=== PATIENT | male | born 2005 | race Caucasian/White ===

== ENCOUNTER 2025-01-07 17:59 | Emergency (ER) | payer MEDICAID ==
[~2025-01-07] VITALS: Ht 162.6 cm; Wt 66.0 kg
[2025-01-07 18:19] VITALS: TEMP 36.7; O2SAT 100
[2025-01-07] MEDS: IBUPROFEN 600MG TABLET PO ONE (20:03)
[2025-01-07] MEDS: TETANUS, DIPHTHERIA, PERTUSSIS VAC/PF 0.5ML (>10YR OLD) IM ONE (20:05)
[2025-01-07] MEDS ORDERED: IBUP-2437 MT (22:03)
[2025-01-07 22:24] VITALS: BP 147/78; PULSE 78; RESP 18; O2SAT 98
== END 2025-01-07 22:28 | disposition home or self-care (01) ==
LOC: ER 17:59
DX: S02.2XXA Fracture of nasal bones, initial encounter for closed fracture (principal); S01.21XA Laceration without foreign body of nose, initial encounter; S06.0XAA Concussion with loss of consciousness status unknown, initial encounter; Y04.0XXA Assault by unarmed brawl or fight, initial encounter; Y93.89 Activity, other specified; Y92.89 Other specified places as the place of occurrence of the external cause; Y99.8 Other external cause status
CPT/HCPCS: 12011; 70486; 90471; 90715; 99285

== ENCOUNTER 2025-01-12 03:53 | Emergency (ER) | payer MEDICAID ==
[~2025-01-12] VITALS: Ht 152.4 cm; Wt 44.0 kg
[~2025-01-12 03:53] MED LIST: IBUP-2437 MT
[2025-01-12 04:34] VITALS: O2SAT 100
[2025-01-12 05:42] VITALS: BP 122/84; PULSE 80; RESP 20; TEMP 36.7; O2SAT 100
== END 2025-01-12 05:48 | disposition home or self-care (01) ==
LOC: ER 03:53
DX: S01.21XD Laceration without foreign body of nose, subsequent encounter (principal); W22.09XA Striking against other stationary object, initial encounter
CPT/HCPCS: 99282